=== PATIENT | female | born 1990 | race Caucasian/White ===

== ENCOUNTER 2025-10-24 12:14 | Emergency (ER) | payer OTHER ==
[2025-10-24] MEDS ORDERED: Ondansetron PF 4 MG/2 ML Vial ONE ×2 (12:46→14:19)
[2025-10-24 12:48] LABS: INR-International Normal Ratio 1.1; Prothrombin Time 13.8 sec (12.0-14.7)
[2025-10-24 12:49] LABS: PTT 37.7 sec (22.9-36.1)
[2025-10-24 12:52] LABS: Hematocrit 47.1 % (36.0-47.0); Hemoglobin 14.4 g/dL (12.0-16.0); Mean Corpuscular Hemoglobin 26.5 pg (27.0-31.0); Mean Corpuscular Volume 86.7 fl (78.0-98.0); Platelet Count 237 10x3/uL (130-400); Red Blood Cell (RBC) Count 5.44 mill/uL (4.20-5.40); White Blood Cell (WBC) Count 15.5 10x3/uL (4.8-10.8)
[2025-10-24 12:58] LABS: ALT (SGPT) 18 U/L (Less than 34); AST (SGOT) 22 U/L (11-34); Albumin 4.1 g/dL (3.1-4.5); Alkaline Phosphatase 71 U/L (40-110); Anion Gap 17 mmol/L (10-20); BUN (Urea Nitrogen) 13 mg/dL (7.0-18.7); Bilirubin, Total 0.2 mg/dL (0.3-1.2); Calc. Creatinine Clearance 0 mL/min (70-130); Calcium 9.3 mg/dL (7.8-10.44); Carbon Dioxide 22 mmol/L (22-29); Chloride 106 mmol/L (98-107); Globulin 3.5 g/dL (2.4-3.5); Glucose 115 mg/dL (70-105); MDiff Complete? YES; Manual Diff?? YES; Potassium 4.1 mmol/L (3.5-5.1); Sodium 141 mmol/L (136-145)
[2025-10-24 12:59] LABS: Platelet Adequacy Comment Appears Adequate
[2025-10-24 13:00] LABS: BHCG - Serum Negative (NEGATIVE); Pregs Control Background? CLEAR/WHITE (CLR/WHITE); Pregs Control Bar Appear? YES (CONTROL BAR)
[2025-10-24] MEDS ORDERED: Azithromycin 500 MG VIAL ONE (14:19)
[2025-10-24] MEDS ORDERED: Azithromycin 250 MG TAB ONE (14:31)
[2025-10-25 22:59] LABS: Campy jejuni + coli by PCR Negative (Negative); STEC Shiga Toxin 1+2 Negative (Negative); Salmonella spp. by PCR POSITIVE (Negative); Shigella spp + EIEC by PCR Negative (Negative)
== END 2025-10-24 14:36 | disposition home or self-care (01) ==
LOC: MADERS 12:14
DX: K52.9 Noninfective gastroenteritis and colitis, unspecified (principal); F17.200 Nicotine dependence, unspecified, uncomplicated
CPT/HCPCS: 74177; 80053; 82274; 84703; 85025; 85610; 85730; 87505; 96361; 96374; 96376; J0456; J2405; J7030